=== PATIENT | female | born 1995 | race Two or more races ===

== ENCOUNTER 2022-10-03 17:11 | Emergency (ER) | payer OTHER ==
[~2022-10-03] VITALS: Ht 152.4 cm; Wt 43.1 kg
[2022-10-03] MEDS ORDERED: PRENA1 TRUE CO1 EACH PO (17:27)
== END 2022-10-03 22:07 | disposition home or self-care (01) ==
LOC: ER 17:11
DX: O26.899 Other specified pregnancy related conditions, unspecified trimester (principal); Z3A.19 19 weeks gestation of pregnancy; R10.2 Pelvic and perineal pain